=== PATIENT | female | born 1990 | race Caucasian/White ===

== ENCOUNTER 2017-03-12 22:12 | Emergency (ER) | payer BC ==
--- NOTE | ~2017-03-12 | ER ---
PATIENT'S NAME: JOSE ROMERO [facility] AGE: 26 Y [address] ROOM: [place] [address] LOCATION: [facility] ADMIT DATE: 03/12/2017 ER/Outpatient Report DISCHARGE DATE: 03/12/2017 FAMILY PHYSICIAN: Sindi Mckay MD ATTENDING PHYSICIAN: Jarrett Lutz Time of Arrival: 2217 hours. Time of Exam: 2230 hours. CHIEF COMPLAINT: Sore throat. HISTORY OF PRESENT ILLNESS: The patient states she has not felt well for the past week, has had sinus pain and pressure, cough, fever, chills, sore throat, pain with swallowing. Reports that she has been taking [id number] cough syrup with minimal relief. ALLERGIES: SYMBICORT. CURRENT MEDICATIONS: On the chart and reviewed by me. PAST MEDICAL HISTORY: Chronic back pain, asthma, anxiety, depression. PAST SURGICAL HISTORY: Negative. SOCIAL HISTORY: She presents to the ER accompanied by her mother. REVIEW OF SYSTEMS: All negative other than those mentioned in the HPI. PHYSICAL EXAMINATION: VITAL SIGNS: She weighed 82.4 kg. Blood pressure is 104/65, pulse of 83, respirations 16, temperature of 97.3 tympanic, and O2 saturation is 97% on room air. GENERAL: She is awake, alert, and oriented x4. SKIN: [place], warm, and dry. RESPIRATIONS: Even and nonlabored. HEENT: TMs are dull and injected, fluid is noted in the right. Nasal is reddened and boggy. Oropharynx is red posteriorly. No exudate noted. PATIENT'S NAME: JOSE ROMERO [facility] AGE: 26 Y [address] ROOM: [place] [address] LOCATION: [facility] ADMIT DATE: 03/12/2017 ER/Outpatient Report DISCHARGE DATE: 03/12/2017 FAMILY PHYSICIAN: Sindi Mckay MD ATTENDING PHYSICIAN: Jarrett Lutz NECK: Supple. No lymphadenopathy. LUNGS: Lung sounds are clear throughout. HEART: Regular rate and rhythm. DIAGNOSTIC DATA: Strep screen was completed and was negative. IMPRESSION: Sinusitis. PLAN: Home, rest, fluids. Tylenol or ibuprofen as needed for fever and discomfort. Recommended [id number] cough syrup with DM prescription was written for cefdinir, antibiotic. She is to follow up with her primary provider in the next 2 to 3 days if symptoms persist or worsen. She verbalized understanding. AYDE TOURE APRN FOR MD JAMIE HERRERA/modlakshmi /[id number] d: 03/13/17 0054 t: 03/29/17 0549, OUTPATIENT REPORT
[~2017-03-12 22:12] MED LIST: PRENATAL 1+1)(P1 TAB PO
== END 2017-03-12 23:00 | disposition disaster alternative care site (69) ==
LOC: GMED 22:12
DX: J32.9 Chronic sinusitis, unspecified (principal); F41.9 Anxiety disorder, unspecified; F32.9 Major depressive disorder, single episode, unspecified; J45.909 Unspecified asthma, uncomplicated; Z88.8 Allergy status to other drugs, medicaments and biological substances